=== PATIENT | male | born 1985 | race Two or more races ===

== ENCOUNTER 2020-08-11 05:41 | Emergency (ER) | payer MEDICARE, MEDICAID ==
[~2020-08-11] VITALS: Ht 165.1 cm; Wt 68.7 kg
[2020-08-11 06:11] VITALS: BP 131/87
== END 2020-08-11 07:01 | disposition left against medical advice (07) ==
LOC: ER 05:41
DX: M79.641 Pain in right hand (principal); F20.9 Schizophrenia, unspecified; Z88.6 Allergy status to analgesic agent; Z98.890 Other specified postprocedural states
CPT/HCPCS: 99281

== ENCOUNTER 2020-08-13 06:58 | Emergency (ER) | payer MEDICARE, MEDICAID ==
[~2020-08-13] VITALS: Ht 167.6 cm; Wt 69.0 kg
[2020-08-13 09:04] LABS: BASOPHILS % 1.2 % (0.0-2.0); EOSINOPHILS % 0.7 % (0.0-5.0); HEMOGLOBIN. 16.2 g/dL (14.0-18.0); LYMPHOCYTES % 23.6 % (20.0-50.0); MEAN CORPUSCULAR HEMOGLOBIN 30.1 pg (28.0-32.0); MEAN PLATELET VOLUME 7.4 fl (7.4-10.4); NEUTROPHILS % 68.5 % (40.0-76.0); PLATELET 348 x1000/uL (130-400); RED BLOOD CELL COUNT 5.39 mill/uL (4.7-6.1); RED CELL DISTRIBUTION WIDTH 14.7 % (11.6-14.6)
[2020-08-13] MEDS ORDERED: IBUP-2437 MT (09:15)
[2020-08-13 09:18] LABS: CHLORIDE 105 mEq/L (98-107)
[2020-08-13 09:22] VITALS: BP 136/81
[2020-08-13 09:23] LABS: ETHANOL BLOOD 15 mg/dL
[2020-08-13 09:32] LABS: *COCAINE SCREEN URINE NEGATIVE (NEGATIVE)
[2020-08-13 09:33] LABS: *AMPHETAMINES SCREEN URINE NEGATIVE (NEGATIVE); *BARBITURATES SCREEN URINE NEGATIVE (NEGATIVE); *BENZODIAZEPINES SCREEN URINE NEGATIVE (NEGATIVE); CANNABINOID URINE SCREEN NEGATIVE (NEGATIVE); METHADONE URINE SCREEN NEGATIVE (NEGATIVE); OPIATES URINE SCREEN NEGATIVE (NEGATIVE); PHENCYCLIDINE URINE SCREEN NEGATIVE (NEGATIVE)
== END 2020-08-13 09:23 | disposition home or self-care (01) ==
LOC: ER 07:33
DX: Z76.0 Encounter for issue of repeat prescription (principal); F20.9 Schizophrenia, unspecified; F31.9 Bipolar disorder, unspecified; Z88.6 Allergy status to analgesic agent
CPT/HCPCS: 36415; 80048; 80305; 80307; 80320; 80329; 85025; 99283; G0480

== ENCOUNTER 2021-04-14 02:06 | Emergency (ER) | payer MEDICARE, MEDICAID ==
[~2021-04-14] VITALS: Ht 167.6 cm; Wt 85.0 kg
[~2021-04-14 02:06] MED LIST: IBUP-2437 MT
[2021-04-14] MEDS ORDERED: NA PHOS,M-B/NA PHOS,DI-BA ENEMA 118ML PR ONE (05:45)
[2021-04-14] MEDS ORDERED: DOCUSATE SODIUM 250MG CAPSULE PO ONE (05:45)
[2021-04-14] MEDS ORDERED: IBUPROFEN 400MG TABLET PO ONE (05:45)
[2021-04-14] MEDS ORDERED: IBUP-2028 MT (06:35)
[2021-04-14] MEDS ORDERED: POLY17PO3 MT (06:35)
[2021-04-14] MEDS ORDERED: NA P133E4 RC (06:36)
[2021-04-14 06:40] VITALS: BP 124/86
== END 2021-04-14 06:50 | disposition home or self-care (01) ==
LOC: ER 02:06
DX: K59.00 Constipation, unspecified (principal); M79.672 Pain in left foot; M79.671 Pain in right foot; Z88.6 Allergy status to analgesic agent; Z86.59 Personal history of other mental and behavioral disorders; Z90.49 Acquired absence of other specified parts of digestive tract
CPT/HCPCS: 99283